=== PATIENT | female | born 1945 | race Caucasian/White ===

== ENCOUNTER 2022-05-19 12:56 | Outpatient (CLI) | payer MEDICARE, BC, SELFPAY ==
[2022-05-19 09:12] LABS: Albumin* 4.2 g/dL (3.3-5.0)
[2022-05-19 09:13] LABS: Chloride* 106 mmol/L (96-114); Potassium* 4.1 mmol/L (3.6-5.1); Sodium* 141 mmol/L (135-149)
[2022-05-19 09:15] LABS: Aspartate Amino Transferase* 28 U/L (12-35); Bilirubin Total* 0.7 mg/dL (0.1-1.5); Blood Urea Nitrogen* 21 mg/dL (7-30); Carbon Dioxide* 30 mmol/L (20-32); Cholesterol* 243 mg/dL (90-199); Creatinine* 0.7 mg/dL (0.5-1.5); Estimated Glomerular Filt Rate 90 ml/min; Total Protein* 6.5 g/dL (6.0-8.3)
[2022-05-19 09:16] LABS: Alanine Aminotransferase* 18 U/L (4-35); Alkaline Phosphatase* 48 U/L (40-150); Calcium* 9.4 mg/dL (8.4-10.6); Glucose* 92 mg/dL (60-115); HDL Cholesterol* 70 mg/dL (>=50); LDL Cholesterol Calculated 157 mg/dL (<100); Triglycerides* 80 mg/dL (40-149)
== END 2022-05-19 12:57 | disposition home or self-care (01) ==
PROVIDERS: PCP Family Medicine; Visit Provider Family Medicine
DX: E78.5 Hyperlipidemia, unspecified (principal); E03.9 Hypothyroidism, unspecified
CPT/HCPCS: 80053; 80061; 84443

== ENCOUNTER 2022-07-08 12:44 | Outpatient (CLI) | payer MEDICARE, BC, SELFPAY ==
--- NOTE | 2022-07-08 13:00 | CRLHL7_ITS ---
For Patients: As a result of the Century Cures Act, medical imaging exams and procedure reports are released immediately into your electronic medical record. You may view this report before your referring provider. If you have questions, please contact your health care provider. BILATERAL SCREENING MAMMOGRAM WITH COMPUTER-AIDED DETECTION AND TOMOSYNTHESIS TECHNIQUE: CC and MLO views were obtained. These mammographic images have been obtained using full-field digital technique. These mammographic images were interpreted with the benefit of computer-aided detection. Breast Tomosynthesis was used in this interpretation. COMPARISON FILM: 05/23/2021, 05/22/2020, 08/17/2018. FINDINGS: The breasts are heterogeneously dense, which may obscure small masses IMPRESSION: There is no radiographic evidence for malignancy. ASSESSMENT: BI-RADS Category 2: Benign RECOMMENDATION: Routine screening mammogram in 1 year. A lay language report of this examination will be provided to the patient. Tru Frederick M.D. Diagnostic/Nuclear Medicine Radiologist [email or web address] BRETT/Dictated by: Tru Frederick MD @ 07/09/2022 8:41:00 AM (Electronically Signed)
== END 2022-07-08 12:45 | disposition home or self-care (01) ==
LOC: MAMMO 12:48
PROVIDERS: PCP Family Medicine; Visit Provider Family Medicine
DX: Z12.31 Encounter for screening mammogram for malignant neoplasm of breast (principal); R92.2 Inconclusive mammogram
CPT/HCPCS: 77063; 77067

== ENCOUNTER 2022-11-19 13:59 | Outpatient (CLI) | payer MEDICARE, BC, SELFPAY | END 2022-11-19 14:00 | disposition home or self-care (01) | PROVIDERS: PCP Family Medicine; Visit Provider Family Medicine | DX: E03.9 Hypothyroidism, unspecified (principal); E78.5 Hyperlipidemia, unspecified; R10.9 Unspecified abdominal pain; R63.4 Abnormal weight loss | CPT/HCPCS: 80053; 84439; 84443; 87086; 87186 ==

== ENCOUNTER 2022-11-20 09:05 | Outpatient (CLI) | payer MEDICARE, BC, SELFPAY | END 2022-11-20 09:06 | disposition home or self-care (01) | LOC: NFLDREF 11-21 15:36 | PROVIDERS: PCP Family Medicine; Referring Provider Family Medicine; Visit Provider Family Medicine | DX: E03.9 Hypothyroidism, unspecified (principal) | CPT/HCPCS: 84439; 84443 ==

== ENCOUNTER 2022-12-04 09:00 | Outpatient (CLI) | payer MEDICARE, BC, SELFPAY | END 2022-12-04 09:01 | disposition home or self-care (01) | LOC: NFLDREF 12-05 14:52 | PROVIDERS: PCP Family Medicine; Referring Provider Family Medicine; Visit Provider Family Medicine | DX: E03.9 Hypothyroidism, unspecified (principal); E05.80 Other thyrotoxicosis without thyrotoxic crisis or storm; R63.4 Abnormal weight loss; R10.9 Unspecified abdominal pain; K59.00 Constipation, unspecified; R10.13 Epigastric pain; R10.84 Generalized abdominal pain; R19.4 Change in bowel habit | CPT/HCPCS: 84439; 84443 ==

== ENCOUNTER 2022-12-11 08:28 | Outpatient (CLI) | payer MEDICARE, BC, SELFPAY ==
--- NOTE | 2022-12-11 09:00 | CRLHL7_ITS ---
For Patients: As a result of the Century Cures Act, medical imaging exams and procedure reports are released immediately into your electronic medical record. You may view this report before your referring provider. If you have questions, please contact your health care provider. Indication: ABD PAIN. WT LOSS, CHANGE IN BOWEL HABITS, MORE CONSTIPATION Technique: Postcontrast CT abdomen and pelvis. 61 cc Isovue 370 intravenous contrast. Please note that all CT scans at this facility use dose modulation, iterative reconstruction, and/or weight-based dosing when appropriate to reduce radiation dose to as low as reasonably achievable. Comparison: None Findings: There is a chronic nodule within the left breast tissue measuring 1.1 cm which is unchanged compared to prior mammograms going back to 2018 and is considered a benign finding. There is no suspicious intrahepatic mass. Focal fat deposition within the liver adjacent to the falciform ligament is noted. There is a benign cyst within the inferior spleen measuring 1.5 cm. The adrenal glands are normal. A subcentimeter cyst within the lower pole of the left kidney is present. The pancreas is unremarkable. Atherosclerotic disease in the aorta noted. Bibasilar scarring/fibrosis. Normal gallbladder. No calcified gallstones or biliary obstruction. No adenopathy in the abdomen or pelvis. Incidental duodenal diverticulum is present. The bladder is normal. No pelvic soft tissue mass. No bowel obstruction or inflammatory change. Normal appendix. No diverticulitis. No abdominal wall hernia. Multilevel degenerative disc disease and facet degeneration with multiple levels of anterolisthesis/retrolisthesis. No compression fracture. Leftward curvature of the lumbar spine is present. Degenerative joint disease of both hips. Impression: No bowel obstruction or inflammatory change. Incidental cyst within the inferior spleen. Please note that all CT scans at this facility use dose modulation, iterative reconstruction, and/or weight-based dosing when appropriate to reduce radiation dose to as low as reasonably achievable. Dictated by Adria Bond MD @ 12/11/2022 12:21:50 PM (Electronically Signed)
== END 2022-12-11 08:29 | disposition home or self-care (01) ==
LOC: CT 08:29
PROVIDERS: PCP Family Medicine; Visit Provider Family Medicine
DX: R10.9 Unspecified abdominal pain (principal); R63.4 Abnormal weight loss
CPT/HCPCS: 74177; Q9967

== ENCOUNTER 2022-12-18 09:16 | Outpatient (CLI) | payer MEDICARE, BC, SELFPAY ==
--- NOTE | 2022-12-18 08:25 | W.ANESCHARGE ---
Anesthesia Charges Start Date/Time Anesthesia Start Date: 12/18/22 Anesthesia Start Time: 10:42 Stop Date/Time Anesthesia Stop Date: 12/18/22 Anesthesia Stop Time: 11:27 Summary Extremes of Age - Over 70 or under 1: MDA
--- NOTE | 2022-12-18 11:29 | W.ANESCHARGE ---
Anesthesia Charges Start Date/Time Anesthesia Start Date: 12/18/22 Anesthesia Start Time: 10:42 Stop Date/Time Anesthesia Stop Date: 12/18/22 Anesthesia Stop Time: 11:27
== END 2022-12-18 09:17 | disposition home or self-care (01) ==
LOC: OP CLINIC 09:19
PROVIDERS: PCP Family Medicine; Visit Provider Internal Medicine
DX: R10.84 Generalized abdominal pain (principal); K57.30 Diverticulosis of large intestine without perforation or abscess without bleeding
CPT/HCPCS: 43239; 45378; 813; 88305; 99100; J2704

== ENCOUNTER 2023-01-26 07:49 | Outpatient (CLI) | payer MEDICARE, BC, SELFPAY | END 2023-01-26 07:50 | disposition home or self-care (01) | LOC: NFLDREF 01-28 11:22 | PROVIDERS: PCP Family Medicine; Referring Provider Family Medicine; Visit Provider Family Medicine | DX: E03.9 Hypothyroidism, unspecified (principal); E05.80 Other thyrotoxicosis without thyrotoxic crisis or storm | CPT/HCPCS: 84439; 84443 ==

== ENCOUNTER 2023-04-04 13:40 | Emergency (ER) | payer MEDICARE, BC, SELFPAY ==
[2023-04-04 13:50] VITALS: BP 133/63; PULSE 72; RESP 16; TEMP 36.6; O2SAT 98; BMI 21.9
--- NOTE | 2023-04-04 13:59 | CRLHL7_ITS ---
For Patients: As a result of the Cures Act, medical imaging exams and procedure reports are released immediately into your electronic medical record. You may view this report before your referring provider. If you have questions, please contact your health care provider. INDICATION: Headaches. History of intracranial parenchymal hemorrhage. TECHNIQUE: Noncontrast axial CT of the head is submitted. Compared to prior MRI of the head from November 22, 2019. FINDINGS: Mild cerebral atrophy. There has been interval involution of prior noted left occipital lobe parenchymal hemorrhage with residual encephalomalacia and gliosis. The remainder of the ventricles, sulci and gyri are of normal size, shape and contour for age and degree of atrophy. Midline structures are centrally located. No convincing evidence of suspicious intra- or extra-axial fluid collections. Mild patchy regions of decreased attenuation within the periventricular and subcortical white matter of both cerebral hemispheres. IMPRESSION: 1. No radiographic evidence of acute intracranial abnormalities. 2. Mild cerebral atrophy. 3. Chronic encephalomalacia and gliosis of the left occipital lobe compatible with involution of prior parenchymal hemorrhage. 4. Mild supratentorial white matter changes that are non-specific, but statistically most likely related to chronic small vessel ischemic disease. Dictated by Kem Herrera MD @ 04/04/2023 3:03:14 PM Please note that all CT scans at this facility use dose modulation, iterative reconstruction, and/or weight-based dosing when appropriate to reduce radiation dose to as low as reasonably achievable. Dictated by: Kem Herrera MD @ 04/04/2023 15:03:28 (Electronically Signed)
--- NOTE | 2023-04-04 14:02 | ED_ITS ---
HPI - General Adult General Chief complaint: Neuro Symptoms/Altered Deficit Stated complaint: Sudden onset headache, confusion Time Seen by Provider: 04/04/23 13:49 History of Present Illness HPI narrative: This 78-year-old female comes in reporting a sudden onset of a headache with some subsequent confusion that occurred about half an hour prior to arrival. She states that she has had worse headaches in the past and now feels that she is doing better. Her confusion was observed by a friend of hers but this was rather short lived also. She did not have any neurologic deficits. She is able to walk and talk normally. She does have a history of a subarachnoid hemorrhage that occurred about 4 5 years ago. She is not on any anticoagulants. Related Data Home Medications Medication Instructions Recorded Confirmed metronidazole 0.75 % topical cream 0.75 applic topical .As Needed PRN 01/24/22 01/29/23 Previous Rx's Medication Instructions Recorded omeprazole 20 mg capsule,delayed 20 mg PO QDAY #60 caps 12/26/22 release levothyroxine 75 mcg capsule 75 mcg PO QDAY #90 caps 01/29/23 Allergies Allergy/AdvReac Type Severity Reaction Status Date / Time Atorvastatin Allergy Intermediate muscle Uncoded 01/29/23 11:10 aches Review of Systems Status of ROS: Reports: 10 or more systems reviewed and unremarkable except as noted in History and below Narrative: Constitutional: No fevers, no weight gain or loss. Eyes: No discharge. No vision changes. HENT: No congestion, no sore throat, no ear pain. Cardiovascular: No chest pain, no palpitations. Respiratory: No shortness of breath, no wheezes, no cough. Gastrointestinal: No abdominal pain, no vomiting, no diarrhea. Genitourinary: No dysuria, no hematuria. Musculoskeletal: Normal range of motion. Skin: No rashes, no pruritis. Neurological: No dizziness, weakness, sensory change, speech change. Endo/Heme/Allergies: No bruising or bleeding. No polydipsia. Pysch: no suicidality, no anxiety, no insomnia. All other systems reviewed and are negative. [facility] Medical History (Updated 04/04/23 @ 16:23 by Dalton Timmons MD) Iatrogenic hyperthyroidism ?E05.80 - Other thyrotoxicosis without thyrotoxic crisis or storm (ICD-10) Weight loss ?R63.4 - Abnormal weight loss (ICD-10) Constipation ?K59.00 - Constipation, unspecified (ICD-10) Rosacea (02/25/10) ?L71.9 - Rosacea, unspecified (ICD-10) Plantar fasciitis (02/25/10) ?M72.2 - Plantar fascial fibromatosis (ICD-10) Peripheral neuropathy ?G62.9 - Polyneuropathy, unspecified (ICD-10) Hypothyroidism (02/25/10) ?E03.9 - Hypothyroidism, unspecified (ICD-10) Hyperlipidemia ?E78.5 - Hyperlipidemia, unspecified (ICD-10) History of subarachnoid hemorrhage (11/22/19) ?Z86.79 - Personal history of other diseases of the circulatory system (ICD- 10) History of Goodpasture's syndrome (1965) ?Z87.448 - Personal history of other diseases of urinary system (ICD-10) History of adenomatous polyp of colon (2008) ?Z86.010 - Personal history of colonic polyps (ICD-10) Genital herpes simplex ?A60.00 - Herpesviral infection of urogenital system, unspecified (ICD-10) Chronic pain of right knee ?M25.561 - Pain in right knee (ICD-10) ?G89.29 - Other chronic pain (ICD-10) Cervical dysplasia (02/25/10) ?N87.9 - Dysplasia of cervix uteri, unspecified (ICD-10) Surgical History History of robot-assisted laparoscopic hysterectomy (2010) ?Z90.710 - Acquired absence of both cervix and uterus (ICD-10) Family History Coronary artery disease Mother Father Breast cancer Mother, Onset Age: 80 Maternal Grandmother Stroke Father Social History Narrative: 2 adult children 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 HEENT: Normocephalic, atraumatic. Neck: Normal range of motion. Nontender. Supple. Heart: Regular. No murmurs. Normal rate. Intact distal pulses. Lungs: Clear to auscultation. No chest discomfort. No wheezes, rhonchi, or rales. Abdomen: Normal bowel sounds. Nontender. No rebound tenderness. Genitalia: Deferred. Back: No midline tenderness. Normal range of motion. Extremities: Normal range of motion. No injury. Skin: Intact. No rash. Warm. No erythema or pallor. Neurologic: No altered sensation. No weakness. Alert and oriented. No facial asymmetry. Tongue is midline. [id number] is normal. No pronator drift. Air Intelligence Specialist strength is equal bilaterally. She is able to raise each leg to my hand. Psychiatric: No suicidality. No anxiety or depression. No insomnia. Nursing notes and vitals signs are reviewed. Const: Vital Signs, click to edit/add: Vital Signs - 24 hr 04/04/23 13:50 Temperature 97.9 F Pulse Rate [Pulse Oximeter] 72 Respiratory Rate 16 Blood Pressure [Ri ght Upper Arm] 133/63 Pulse Oximetry 98 Oxygen Delivery Me thod Room Air Course Vital Signs Vital signs: Initial Vital Signs Temperature 97.9 F 04/04/23 13:50 Temperature Source Temporal Artery Scan 04/04/23 13:50 Pulse Rate 72 04/04/23 13:50 Respiratory Rate 16 04/04/23 13:50 Blood Pressure 133/63 04/04/23 13:50 Blood Pressure Mean 86 04/04/23 13:50 Blood Pressure Position Supine 04/04/23 13:50 Pulse Oximetry 98 04/04/23 13:50 Oxygen Delivery Method Room Air 04/04/23 13:50 Vital Signs Temperature 97.9 F 04/04/23 13:50 Pulse Rate 72 04/04/23 13:50 Respiratory Rate 16 04/04/23 13:50 Blood Pressure 133/63 04/04/23 13:50 Pulse Oximetry 98 04/04/23 13:50 Oxygen Delivery Method Room Air 04/04/23 13:50 Temperature 97.9 F 04/04/23 13:50 Pulse Rate 72 04/04/23 13:50 Respiratory Rate 16 04/04/23 13:50 Blood Pressure 133/63 04/04/23 13:50 Pulse Oximetry 98 04/04/23 13:50 Oxygen Delivery Method Room Air 04/04/23 13:50 Medical Decision Making MDM Narrative Medical decision making narrative: This patient comes in reporting a sudden onset of feeling confusion or difficulty with memory of what is recently happening. She also reports a mild to moderate headache. She states that she has had headaches significantly worse than this in the past and also has a history of a subarachnoid hemorrhage about 4 5 years ago. Her neurologic exam and her conversation and higher order functions all are completely normal except she continues to try to remember what was happening in the events earlier today. I revisited her and she states that she does not remember going to the CT scanner in her visit here. Lab results also return with normal reassuring findings. This patient may be experiencing transient global amnesia. She is not showing any sign of neurologic deficit. She is here with a friend and lives at home with her . She is able to get up and ambulate and function normally so despite the difficulty remembering recent events she seems okay to return home with her friend and under the care an observation of her . I did advise her to return if worsening symptoms occur. Lab Data Labs: Lab Results 04/04/23 Range/Units 15:31 WBC 5.45 (4.50-11.00) K/uL RBC 3.91 L (4.00-5.20) m/uL Hgb 13.2 (12.0-16.0) gm/dL Hct 39.8 (33.0-51.0) % MCV 102 H (80-100) fL MCH 34 (26-34) pg MCHC 33 (32-36) gm/dL RDW Coeff of Robi 13.0 (11.5-15.5) % Plt Count 196 (140-440) K/uL Neut % (Auto) 71.1 (42.0-72.0) % Lymph % (Auto) 20.4 (20-44) % [place] % (Auto) 7.7 (0.0-11.0) % Eos % (Auto) 0.2 (0.0-7.0) % Baso % (Auto) 0.2 (0.0-3.0) % Neut # (Auto) 3.88 (1.7-7.0) K/uL Lymph # (Auto) 1.11 (0.90-2.90) K/uL [place] # (Auto) 0.40 (0.00-0.90) K/UL Eos # (Auto) 0.01 (0.00-0.50) K/uL Baso # (Auto) 0.01 (0.00-0.30) K/uL Abs Immat Gran (auto) 0.02 (0.00-0.30) K/uL Imm/Tot Granulo (auto) 0.4 % Sodium 139 (135-149) mmol/L Potassium 4.6 (3.6-5.1) mmol/L Chloride 103 (96-114) mmol/L Carbon Dioxide 30 (20-32) mmol/L Anion Gap 6 L (7-15) mEq/L BUN 13 (7-30) mg/dL Creatinine 0.7 (0.5-1.5) mg/dL Estimated Creat Clear 37.26 Estimated GFR 89 ml/min Glucose 99 (60-115) mg/dL Calcium 9.4 (8.4-10.6) mg/dL Imaging Data CT scan - head: Radiologist's impression: 1. No radiographic evidence of acute intracranial abnormalities. 2. Mild cerebral atrophy. 3. Chronic encephalomalacia and gliosis of the left occipital lobe compatible with involution of prior parenchymal hemorrhage. 4. Mild supratentorial white matter changes that are non-specific, but statistically most likely related to chronic small vessel ischemic disease. Discharge Plan Discharge Clinical Impression: TGA (transient global amnesia) Patient Disposition: Home w/ Parent or Adult Condition: Unchanged Additional Instructions: Continue current plans. Activity as tolerated. Follow up with MD or return if worsening symptoms occur. Prescriptions: No Action metronidazole 0.75 % cream 0.75 applic topical .As Needed PRN levothyroxine 75 mcg capsule 75 mcg PO QDAY Qty: 90 3RF omeprazole 20 mg capsule,delayed release(DR/EC) 20 mg PO QDAY Qty: 60 0RF Follow Up/Referrals: Lupe Haynes MD [Primary Care Provider] - Stand Alone Forms: [employer] Info Instructions
[2023-04-04 15:37] LABS: Basophils Absolute Auto 0.01 K/uL (0.00-0.30); Basophils Percent Auto 0.2 % (0.0-3.0); Eosinophils Absolute Auto 0.01 K/uL (0.00-0.50); Eosinophils Percent Auto 0.2 % (0.0-7.0); Hematocrit 39.8 % (33.0-51.0); Hemoglobin* 13.2 gm/dL (12.0-16.0); Immature Granulocytes Abs Auto 0.02 K/uL (0.00-0.30); Immature Granulocytes Pct Auto 0.4 %; Lymphocytes Absolute Auto 1.11 K/uL (0.90-2.90); Lymphocytes Percent Auto 20.4 % (20-44); Mean Corpuscular HGB Conc 33 gm/dL (32-36); Mean Corpuscular Hemoglobin 34 pg (26-34); Mean Corpuscular Volume 102 fL (80-100); Monocytes Percent Auto 7.7 % (0.0-11.0); Neutrophils Absolute Auto 3.88 K/uL (1.7-7.0); Neutrophils Percent Auto 71.1 % (42.0-72.0); Platelet Count* 196 K/uL (140-440); Red Blood Count 3.91 m/uL (4.00-5.20); White Blood Count* 5.45 K/uL (4.50-11.00)
[2023-04-04 15:47] LABS: Slide Review Reflex No
[2023-04-04 15:54] LABS: Chloride* 103 mmol/L (96-114); Potassium* 4.6 mmol/L (3.6-5.1); Sodium* 139 mmol/L (135-149)
[2023-04-04 15:57] LABS: Anion Gap 6 mEq/L (7-15); Blood Urea Nitrogen* 13 mg/dL (7-30); Carbon Dioxide* 30 mmol/L (20-32); Creatinine* 0.7 mg/dL (0.5-1.5); Est. Creatinine Clearance* 37.26; Estimated Glomerular Filt Rate 89 ml/min
[2023-04-04 15:58] LABS: Calcium* 9.4 mg/dL (8.4-10.6); Glucose* 99 mg/dL (60-115)
[2023-04-04 16:32] VITALS: BP 130/78; PULSE 75; RESP 18; O2SAT 99
--- NOTE | 2023-04-06 08:51 | ED.NURSE ---
Chart accessed as Bakari had called and wanted to know her dc instructions. Instructions given per phone.
== END 2023-04-04 16:33 | disposition home or self-care (01) ==
PROVIDERS: Emergency Provider Emergency Medicine Emergency Medical Services; PCP Family Medicine
DX: G45.4 Transient global amnesia (principal)
CPT/HCPCS: 36415; 70450; 80048; 85025; 99284

== ENCOUNTER 2023-04-08 15:30 | Outpatient (CLI) | payer MEDICARE, BC, SELFPAY | END 2023-04-08 15:31 | disposition home or self-care (01) | PROVIDERS: PCP Family Medicine; Visit Provider Family Medicine | DX: R71.8 Other abnormality of red blood cells (principal); E03.9 Hypothyroidism, unspecified | CPT/HCPCS: 82607; 84439; 84443 ==

== ENCOUNTER 2023-06-02 08:00 | Outpatient (CLI) | payer MEDICARE, BC, SELFPAY ==
--- OUTSIDE RECORDS SUMMARY | 2023-06-04 15:42 | XMS_ITS | Clinical Summary ---
Author Name Unknown Organization [facility] Address [place], [place] [address] Care Team Providers Care Scenery Builder Name Role Phone Lupe Haynes MD Primary Care Provider + Nader Fermin MD Unavailable [phone] Allergies Active Allergy Reactions Criticality Noted Date Comments Rofecoxib Other - Describe In Comment Field Low 09/21/2018 Lsjrdou-Uvl-Hfl Reductase Inhibitors Other - Describe In Comment Field 10/20/2018 Leg cramps Medications Medication Sig Dispensed Refills Start Date End Date Status b complex vitamins (VITAMIN B COMPLEX) capsule Take 1 capsule by mouth once daily. 0 Active metroNIDAZOLE 0.75 % cream Apply topically to affected area(s) 2 times daily if needed. 0 05/21/2018 Active calcium carbonate (CALTRATE) 600 mg calcium (1,500 mg) tablet Take 600 mg by mouth at bedtime. 0 Active Cholecalciferol, Vitamin D3, 2,000 unit tablet Take 2,000 Units by mouth once daily. 0 Active levothyroxine (SYNTHROID) 100 mcg tablet Take 100 mcg by mouth once daily. 3 08/16/2018 Active valacyclovir HCl (VALTREX ORAL) Take by mouth. Uses prn - hasn't used it lately 0 Active omeprazole (PRILOSEC) 20 mg Delayed-Release capsuleIndications:AV M (arteriovenous malformation) Take 1 capsule by mouth once daily before a meal. 28 capsule 0 02/21/2020 Active pregabalin (LYRICA) 50 mg capsule 0 11/07/2020 Active pregabalin (LYRICA) 75 mg capsule 0 11/16/2020 Active durable medical equipment (DME)Indications:Prim raymundo osteoarthritis of right knee,Chronic pain of right knee Procare Reddie Brace (wrap around hinged knee brace), Medium [id number] Length of Use: 99 months 0 12/17/2020 Active medication order composer Take by mouth. 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 Immunizations Name Administration Dates Next Due Hepatitis A (Adult) 05/14/2017 Influenza, High-dose Inactivated 05/24/2019,05/11,05/19/2016 Influenza, High-dose Quadriv alent Inactivated 02/27/2021,04/02/2020 Influenza, IIV4 05/21/2018,05/14/2017,05/19/2016 Influenza, Inactivated AIIV4 (Age 65+ Years) Preserv Free 01/22/2022 Pneumococcal Poly,23-Valent (Pneumovax) 08/12/19 12 Pneumococcal conj 13-Valent (Prevnar 13) 016 Td, Preservative Free (age >= 7 Years) 4,10/23/1997 Tdap 08/12/2011 Typhoid (injectable) 05/14/2017 Zoster (Shingrix-RZV, recombinant) 10/31/2019, Zoster (Zostavax-ZVL, live) 05/16/2015 Family History Medical History Relation Name Comments Stroke Father Cancer-breast Mother Coronary artery disease Other Relation Name Status Comments Father Mother Other Social History Tobacco Use Types Packs/Day Years Used Date Smoking Tobacco: Former Smokeless Tobacco: Never Tobacco Cessation:Counseling Given: Yes Comments:None for 50 years Alcohol Use Standard Drinks/Week Comments Yes 0 (1 standard drink = 0.6 oz pure alcohol) Has a little glass of wine once a day Social Connections Answer Date Recorded Frequency of Communication with Friends and Fami ly Not on file 05/11/2021 Financial Resource Strain Answer Date R ecorded Difficulty of Paying Living Expenses Not on file 05/11/2021 Difficulty of Paying Living Expenses Not on file 05/11/2021 Sex and Gender Information Value Date Recorded Sex Assigned at Not on file Gender Identity Female 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 reported TB 02-20-2022 Height 157.5 cm (5' 2) 02/20/2022 9:04 AM CDT Pt. reported TB 02-20-2022 Body Mass Index 25.97 02/20/2022 9:04 AM CDT Plan of Treatment Health Maintenance Due Date Last Done Comments Depression screening for age 12+ 1958 Hepatitis C screening for ag e 18-79 01/26/1964 DEXA/DXA scan for age 65+ 2011 Medicare Wellness for age 65+ 2011 Tetanus booster 08/11/2021 08/12/2011, 11/0 01/2004, 10/23/1997 COVID-19 vaccine series ( season) 2023 01/22/2022, 08/17/2021, 03/07/2021, Additional history exists Influenza for age 65+ 01/09/2023 01/22/2022 , 02/27/2021, 04/02/2020, Additional history exists BMI (ht and wt on same day) for age 18+ 02/20/2023 02/20/2022, 11/29/2018, 10/20/2018 Tdap Completed 08/12/2011 Pneumococcal series for age 65+ Completed 6, 08/12/2011 Zoster (shingles) series for age 50+ Completed 10/31/2019, 05/25/2019, 05/16/2015 Advance Directives Documents on File Type Date Recorded Patient Clinical Specialist Medical Device Expl anation Treatment Guidelines 08/13/2020 10:44 AM bl ood transfution info card Latest Code Status on File Code Status Date Activated Date Inactivated Comments Full Code 11/22/2019 8:41 PM 11/25/2019 1:34 PM Question Answer Comments Code Status Discussion: Not Discussed Care Teams Scenery Builder Relationship Specialty Start Date End Date Lupe Haynes MD [address] [place] [address] PCP - General Family Practice 10/20/18 Nader Fermin MD [facility] [place] [address] Consulting Physician Sports Medicine - Family Medicine 04/18/20
== END 2023-06-02 08:01 | disposition home or self-care (01) ==
LOC: NFLDREF 06-04 15:39
PROVIDERS: PCP Family Medicine; Referring Provider Family Medicine; Visit Provider Family Medicine
DX: E03.9 Hypothyroidism, unspecified (principal); E78.00 Pure hypercholesterolemia, unspecified; Z13.1 Encounter for screening for diabetes mellitus
CPT/HCPCS: 80061; 82947; 84439; 84443

== ENCOUNTER 2023-07-08 12:32 | Outpatient (CLI) | payer MEDICARE, BC, SELFPAY ==
--- NOTE | 2023-07-08 13:00 | MR_ITS ---
Patient: GUERRERO NEVES Facility:?[facility] Patient ID:?[id number] Site Patient ID:?[id number]. Site :?[id number] Study:?MRI-Head MRA W/O-07/08/2023 5:14:44 PM Ordering Physician:FERN GATES Final Report: INDICATION: Follow up intracranial hemorrhage. Evaluate for AVM. TECHNIQUE: Brain is scanned with sagittal T1 axial FLAIR T2 diffusion-weighted and volumetric T1 weighted sequences for after infusion of 20 cc of a around contrast. Dayo-hn-nxzlez magnetic resonance angiography of the intracranial [place] arteries. Swdk-vm-[id number] and gadolinium-enhanced MRA images of the carotid arteries and vertebral arteries. COMPARISON: Previous MRI and MRA dated 11/22/2019. FINDINGS: MRI brain: There is a focal zone of encephalomalacia and gliosis in the left occipital lobe with associated degraded blood products that corresponds to the site of previously noted intraparenchymal hemorrhage on the prior MRI scan. This has shown expected maturation and focal loss of volume. No evidence of recurrent hemorrhage. No mass effect. No sign of intracranial hemorrhage elsewhere in the brain. The ventricles and subarachnoid spaces are mildly prominent but stable. No evidence of acute ischemic infarction no areas of diffusion restriction. Multi focal and confluent foci of FLAIR/T2 hyperintensity within bilateral supratentorial white matter as noted before are nonspecific findings but consistent with chronic small vessel ischemic disease. Postcontrast images show a small enhancing vein along the rostral margin of the mature left occipital lobe hematoma bed (images 147 and 148 of coronal series 12). This may represent an asymmetric cortical vein or less likely a small developmental venous anomaly. No evidence of high flow vascular malformation. No enhancing lesions. Orbits, sella and skull base are unremarkable. MRA [place]: The distal internal carotid arteries and basilar artery are widely patent. The anterior middle and posterior cerebral arteries their proximal branches are unremarkable no evidence of high-flow AV malformation or aneurysm. MRA carotid arteries and vertebral arteries: Bilateral common carotid arteries internal and external carotid arteries are widely patent. Bilateral vertebral arteries are widely patent. There is no evidence of flow- limiting stenosis or dissection. IMPRESSION: 1. Interval expected maturation of the previously noted left occipital lobe intraparenchymal hemorrhage (comparing to prior MRI 11/22/2019). No evidence of recurrent intracranial hemorrhage. 2. Mild generalized volume loss. Mild to moderate chronic small vessel ischemic disease. 3. No MRA evidence of high-flow AV malformation or aneurysm. 4. Small enhancing vein near the left occipital lobe mature hematoma bed could represent a small incidental developmental venous anomaly or asymmetric cortical vein. 5. No evidence of flow-limiting stenosis or dissection of carotid arteries or vertebral arteries. Dictated by Tru Colunga MD @ 07/10/2023 7:39:30 AM Signed by:?Tru Colunga MD @07/10/2023 7:39:30 AM (Electronic Signature)
--- NOTE | 2023-07-08 13:19 | MR_ITS ---
Patient: GUERRERO NEVES Facility:?[facility] RIS Patient ID:?[id number] Site Patient ID:?[id number]. Site :?1945 Study:?MRI-Head W/ and W/O Cont 20 CC DOATERM-07/08/2023 5:13:12 PM Ordering Physician:FERN GATES Final Report: INDICATION: Follow up intracranial hemorrhage. Evaluate for AVM. TECHNIQUE: Brain is scanned with sagittal T1 axial FLAIR T2 diffusion-weighted and volumetric T1 weighted sequences for after infusion of 20 cc of a around contrast. Njpc-bl-vnxerz magnetic resonance angiography of the intracranial hopi Faye arteries. Oosz-yo-havavb and gadolinium-enhanced MRA images of the carotid arteries and vertebral arteries. COMPARISON: Previous MRI and MRA dated 11/22/2019. FINDINGS: MRI brain: There is a focal zone of encephalomalacia and gliosis in the left occipital lobe with associated degraded blood products that corresponds to the site of previously noted intraparenchymal hemorrhage on the prior MRI scan. This has shown expected maturation and focal loss of volume. No evidence of recurrent hemorrhage. No mass effect. No sign of intracranial hemorrhage elsewhere in the brain. The ventricles and subarachnoid spaces are mildly prominent but stable. No evidence of acute ischemic infarction no areas of diffusion restriction. Multi focal and confluent foci of FLAIR/T2 hyperintensity within bilateral supratentorial white matter as noted before are nonspecific findings but consistent with chronic small vessel ischemic disease. Postcontrast images show a small enhancing vein along the rostral margin of the mature left occipital lobe hematoma bed (images 147 and 148 of coronal series 12). This may represent an asymmetric cortical vein or less likely a small developmental venous anomaly. No evidence of high flow vascular malformation. No enhancing lesions. Orbits, sella and skull base are unremarkable. MRA [place] of Faye: The distal internal carotid arteries and basilar artery are widely patent. The anterior middle and posterior cerebral arteries their proximal branches are unremarkable no evidence of high-flow AV malformation or aneurysm. MRA carotid arteries and vertebral arteries: Bilateral common carotid arteries internal and external carotid arteries are widely patent. Bilateral vertebral arteries are widely patent. There is no evidence of flow- limiting stenosis or dissection. IMPRESSION: 1. Interval expected maturation of the previously noted left occipital lobe intraparenchymal hemorrhage (comparing to prior MRI 11/22/2019). No evidence of recurrent intracranial hemorrhage. 2. Mild generalized volume loss. Mild to moderate chronic small vessel ischemic disease. 3. No MRA evidence of high-flow AV malformation or aneurysm. 4. Small enhancing vein near the left occipital lobe mature hematoma bed could represent a small incidental developmental venous anomaly or asymmetric cortical vein. 5. No evidence of flow-limiting stenosis or dissection of carotid arteries or vertebral arteries. Dictated by Tru Colunga MD @ 07/10/2023 7:38:49 AM Signed by:?Tru Colunga MD @07/10/2023 7:38:49 AM (Electronic Signature)
--- NOTE | 2023-07-08 13:45 | MR_ITS ---
Patient: GUERRERO NEVES Facility:?[facility] RIS Patient ID:?[id number] Site Patient ID:?[id number]. Site :?1945 Study:?MRI-Neck Angio W/ and W/O Cont 20 CC DOATERM-07/08/2023 5:15:56 PM Ordering Physician:?FERN SCHNEIDER Final Report: INDICATION: Follow up intracranial hemorrhage. Evaluate for AVM. TECHNIQUE: Brain is scanned with sagittal T1 axial FLAIR T2 diffusion-weighted and volumetric T1 weighted sequences for after infusion of 20 cc of a around contrast. Dcab-fa-igayfo magnetic resonance angiography of the intracranial sac and [place]aye arteries. Lfkh-oz-ldehpz and gadolinium-enhanced MRA images of the carotid arteries and vertebral arteries. COMPARISON: Previous MRI and MRA dated 11/22/2019. FINDINGS: MRI brain: There is a focal zone of encephalomalacia and gliosis in the left occipital lobe with associated degraded blood products that corresponds to the site of previously noted intraparenchymal hemorrhage on the prior MRI scan. This has shown expected maturation and focal loss of volume. No evidence of recurrent hemorrhage. No mass effect. No sign of intracranial hemorrhage elsewhere in the brain. The ventricles and subarachnoid spaces are mildly prominent but stable. No evidence of acute ischemic infarction no areas of diffusion restriction. Multi focal and confluent foci of FLAIR/T2 hyperintensity within bilateral supratentorial white matter as noted before are nonspecific findings but consistent with chronic small vessel ischemic disease. Postcontrast images show a small enhancing vein along the rostral margin of the mature left occipital lobe hematoma bed (images 147 and 148 of coronal series 12). This may represent an asymmetric cortical vein or less likely a small developmental venous anomaly. No evidence of high flow vascular malformation. No enhancing lesions. Orbits, sella and skull base are unremarkable. MRA [place] of Faye: The distal internal carotid arteries and basilar artery are widely patent. The anterior middle and posterior cerebral arteries their proximal branches are unremarkable no evidence of high-flow AV malformation or aneurysm. MRA carotid arteries and vertebral arteries: Bilateral common carotid arteries internal and external carotid arteries are widely patent. Bilateral vertebral arteries are widely patent. There is no evidence of flow- limiting stenosis or dissection. IMPRESSION: 1. Interval expected maturation of the previously noted left occipital lobe intraparenchymal hemorrhage (comparing to prior MRI 11/22/2019). No evidence of recurrent intracranial hemorrhage. 2. Mild generalized volume loss. Mild to moderate chronic small vessel ischemic disease. 3. No MRA evidence of high-flow AV malformation or aneurysm. 4. Small enhancing vein near the left occipital lobe mature hematoma bed could represent a small incidental developmental venous anomaly or asymmetric cortical vein. 5. No evidence of flow-limiting stenosis or dissection of carotid arteries or vertebral arteries. Dictated by Tru Colunga MD @ 07/10/2023 7:40:04 AM Signed by:?Tru Colunga MD @07/10/2023 7:40:04 AM (Electronic Signature)
== END 2023-07-08 12:33 | disposition home or self-care (01) ==
LOC: MRI 12:33
PROVIDERS: PCP Family Medicine; Visit Provider Psychiatry & Neurology Neurology
DX: I62.9 Nontraumatic intracranial hemorrhage, unspecified (principal); I67.82 Cerebral ischemia; Q28.2 Arteriovenous malformation of cerebral vessels; R90.89 Other abnormal findings on diagnostic imaging of central nervous system
CPT/HCPCS: 70544; 70549; 70553; A9575

== ENCOUNTER 2023-07-09 12:34 | Outpatient (CLI) | payer MEDICARE, BC, SELFPAY ==
--- NOTE | 2023-07-09 13:00 | XR_ITS ---
Patient: GUERRERO NEVES Facility:?[facility] Patient ID:?[id number] Site Patient ID:?[id number]. Site :?1945 Study:?DEXA-Bone Density SPINE/BOTH HIPS-07/09/2023 1:11:26 PM Ordering Physician:JARVIS Final Report: DXA BONE MINERAL DENSITY STUDY Reason for exam: Postmenopausal. Current height (in): 62. Weight (lb): 115. Menopause age: 51. Ethnicity: White. 1. Have you had a previous hip or vertebral fracture? No. 2. Have you had any fractures during your adult life which did not result from significant trauma (e.g., auto accident)? No. 3. Did either of your parents have a hip fracture? No. 4. Do you smoke? No. 5. Have you ever taken Glucocorticoids? No. 6. Do you have rheumatoid arthritis? No. 7. Do you have secondary osteoporosis? No. 8. Do you drink 3 or more alcoholic drinks per day? No. 9. Are you being treated for osteoporosis? No. 10. Have you ever taken any of the following medications: Actonel, Evista, Fosamax, Miacalcin, Reclast, Boniva, Forteo, HRT (i.e., estrogen/hormone therapy), Protelos, Prolia, Vitamin D, Calcium, other ? please specify. ANSWER: Yes, vitamin D, calcium, and pregabalin. 11. Do you have any of the following medical conditions: Anorexia or bulimia, asthma or emphysema, end stage renal disease, hyperparathyroidism, any seizure disorders, cancer, inflammatory bowel diseases, hysterectomy, other ? please specify. ANSWER: No. 12. What was your maximum height (inches)? 62. 13. Do you perform weight bearing exercise regularly? No. 14. Do you regularly consume dairy products? Yes. 15. Do you drink caffeinated beverages? Yes. If female: 16. At what age did your period start? 14. 17. Are you premenopausal? No. 18. How many full-term pregnancies have you had? 2. 19. Have you ever missed your period for more than 6 months in a row (not including or menopause)? No. TECHNIQUE: Bone mineral density study was performed using the CommScope. FINDINGS: The results of the study expressed as bone mineral density (BMD) are as follows: Lumbar spine L1 to L4: BMD: 1.208 g/cm2. T-score: 1.5. Z-score: 4.0 Neck Left: BMD: 0.724 g/cm2. T-score: -1.1. Z-score: 1.1 Right: BMD: 0.749 g/cm2. T-score: -0.9. Z-score: 1.3 Total Left: BMD: 0.852 g/cm2. T-score: -0.7. Z-score: 1.2 Right: BMD: 0.827 g/cm2. T-score: -0.9. Z-score: 1.0 IMPRESSION: Osteopenia. *Comparison exams done prior to 10/2019 were performed on different unit, [employer]. COMPARISON: Compared with scan of 05/24/2018, the bone mineral density has decreased by 6.8 percent at the spine and decreased by 6.1 percent at the hip. Compared with scan of 08/22/2013, the bone mineral density has increased by 2.2 percent at the spine and decreased by 6.6 percent at the hip. FRAX 10-year Fracture Risk Major Osteoporotic Fracture: 9.8% Hip Fracture: 1.9% Reported Risk Factors: [place] () Neck BMD0.724, BMI=21.0 Adria Bond M.D. Diagnostic Radiologist [email or web address] MARRY/margarito D& Transcribed: 4:55 p.mAbel pimentel/Dictated by: Adria Bond MD @ 07/10/2023 9:17:00 AM Signed by:?Adria Bond MD @07/11/2023 10:14:57 AM (Electronic Signature)
== END 2023-07-09 12:35 | disposition home or self-care (01) ==
LOC: RAD 12:35
PROVIDERS: PCP Family Medicine; Visit Provider Family Medicine
DX: Z78.0 Asymptomatic menopausal state (principal); M85.88 Other specified disorders of bone density and structure, other site
CPT/HCPCS: 77080

== ENCOUNTER 2023-07-16 08:48 | Outpatient (CLI) | payer MEDICARE, BC, SELFPAY | END 2023-07-16 08:49 | disposition home or self-care (01) | LOC: NFLDREF 07-29 09:30 | PROVIDERS: PCP Family Medicine; Referring Provider Family Medicine; Visit Provider Family Medicine | DX: Z13.21 Encounter for screening for nutritional disorder (principal) | CPT/HCPCS: 82306 ==

== ENCOUNTER 2023-09-01 07:59 | Outpatient (CLI) | payer MEDICARE, BC, SELFPAY ==
--- OUTSIDE RECORDS SUMMARY | 2023-09-02 10:28 | XMS_ITS | Clinical Summary ---
Author Name Unknown Organization [facility] Address [place], [place] [address] Care Team Providers Care Emergency Service Restorer Name Role Phone Lupe Haynes MD Primary Care Provider + Nader Fermin MD Unavailable [phone] Allergies Active Allergy Reactions Criticality Noted Date Comments Rofecoxib Other - Describe In Comment Field Low 09/21/2018 Vwmcrlp-Pqw-Ivy Reductase Inhibitors Other - Describe In Comment Field 10/20/2018 Leg cramps Medications Medication Sig Dispensed Refills Start Date End Date Status b complex vitamins (VITAMIN B COMPLEX) capsule Take 1 capsule by mouth once daily. Active metroNIDAZOLE 0.75 % cream Apply topically to affected area(s) 2 times daily if needed. 05/21/2018 Active calcium carbonate (CALTRATE) 600 mg calcium (1,500 mg) tablet Take 600 mg by mouth at bedtime. Active Cholecalciferol, Vitamin D3, 2,000 unit tablet Take 2,000 Units by mouth once daily. Active levothyroxine (SYNTHROID) 100 mcg tablet Take 100 mcg by mouth once daily. 3 08/16/2018 Active valacyclovir HCl (VALTREX ORAL) Take by mouth. Uses prn - hasn't used it lately Active omeprazole (PRILOSEC) 20 mg Delayed-Release capsuleIndications:AV M (arteriovenous malformation) Take 1 capsule by mouth once daily before a meal. 28 capsule 02/21/2020 Active pregabalin (LYRICA) 50 mg capsule 11/07/2020 Active pregabalin (LYRICA) 75 mg capsule 11/16/2020 Active durable medical equipment (DME)Indications:Prim raymundo osteoarthritis of right knee,Chronic pain of right knee Procare Reddie Brace (wrap around hinged knee brace), Medium [id number] Length of Use: 99 months 0 12/17/2020 Active medication order composer Take by mouth. 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 ASSISTANT Sexual Orientation Not on file Obstetrics History [...] age 65+ 2011 Tetanus booster 08/11/2021 08/12/2011, 1101/2004, 10/23/1997 COVID-19 vaccine series ( season) 2023 01/22/2022, 08/17/2021, 03/07/2021, Additional history exists BMI (ht and wt on same day) for age 18+ 02/20/2023 02/20/2022, 11/29/2018, 10/20/2018 Influenza for age 65+ 01/10/2024 01/22/2022 , 02/27/2021, 04/02/2020, Additional history exists Tdap Completed 08/12/2011 Pneumococcal series for age 65+ Completed 6, 08/12/2011 Zoster (shingles) series for age 50+ Completed 10/31/2019, 05/25/2019, 05/16/2015 Procedures Procedure Name Priority Date/Time Associated Diagnosis Comments LAB TRACKING EVENT Routine 06/04/2023 10 :40 AM FLOOR COVERING PRINTER ASSISTANT PLATE GLASS POLISHER THIN PREP PAP SCREEN IMAGED Routine 06/04/2023 10:40 AM FLOOR COVERING PRINTER ASSISTANT HPV THIN PREP Routine 06/04/2023 10:40 AM FLOOR COVERING PRINTER ASSISTANT from Last 3 Months Results * LAB TRACKING EVENT (06/04/2023 10:40 AM FLOOR COVERING PRINTER ASSISTANT) Other (Other) Client Collect / Unknown 06/04/2023 10:40 AM FLOOR COVERING PRINTER ASSISTANT 06/04/2023 3:59 PM FLOOR COVERING PRINTER ASSISTANT Lupe Haynes MD LAB BILL ONLY [facility] [address] [place] [id number], * PLATE GLASS POLISHER THIN PREP PAP SCREEN IMAGED (06/04/2023 10:40 AM FLOOR COVERING PRINTER ASSISTANT) Case Report Gynecologic Cytology Report ? Case: [id number] ? Authorizing Provider: ??Lupe Haynes MD ??Collected: ? 06/04/2023 1040 ? Ordering Location: ? [facility] ?Received: ?06/04/2023 1659 ? First Screen: ?Betzaida Donato ? Specimen: ?PLATE GLASS POLISHER ThinPrep Vial Screening, Vaginal ? 06/11/2023 10:46 AM [facility] INTERPRETATION/ RESULT NEGATIVE FOR INTRAEPITHELIAL LESION OR MALIGNANCY (NIL) (none) 06/11/2023 10:46 AM [facility] IMEN ADEQUACY Satisfactory for evaluation Endocervical cells cannot be evaluated due to severe atrophy 06/11/2023 10:46 AM [facility] HPV REQUEST HPV and PAP 06/11/2023 10:46 AM [facility] Last Pap Date 05/22/2022 06/11/2023 10:46 AM [facility] Last Pap Result NIL 10:46 AM [facility] Abnormal Pap or Fishtail Bx in last 5 years No 06/11/2023 10:46 AM [facility] Menstrual Status Postmenopausal 06/11/2023 10:46 AM [facility] Additional Information 06/11/2023 10:46 AM [facility] Comment: Interpreted at [facility] Central Laboratory - [address], [place] [address] Automated Review Successful 06/11/2023 10:46 AM [facility] Comment:Specimen processed s uccessfully by automated medical equipment technician device, ThinPrep Imaging System, [employer] ANCILLARY TESTING PLATE GLASS POLISHER HPV Ordered, Please see separate report 06/11/2023 10:46 AM [facility] Note The pap test is a screening technique, not a diagnostic procedure. It is used primarily to screen for squamous cancers and precursor lesions. Published studies have shown that it is subject to both false negative and false positive results. The pap test should not be used as the sole means to diagnose or exclude pre-malignant and malignant lesions. 06/11/2023 10:46 AM FLOOR COVERING PRINTER ASSISTANT [facility] Other VAGINAL SWAB / Unknown 06/04/2023 10:40 AM FLOOR COVERING PRINTER ASSISTANT 06/04/2023 4:59 PM FLOOR COVERING PRINTER ASSISTANT Lupe Haynes MD PATHOLOGY/CYTOLO GY Performing Organization Address [facility] Co de Phone Number [facility] [address] [place] [address], * HPV HIGH RISK (06/04/2023 10:40 AM FLOOR COVERING PRINTER ASSISTANT) TYPE 16 Negative Negative 06/08/2023 11:04 AM FLOOR COVERING PRINTER ASSISTANT [facility] TYPE 18 Negative Negative 06/08/2023 11:04 AM FLOOR COVERING PRINTER ASSISTANT [facility] OTHER HIGH RISK TYPES Negative Negative 06/08/2023 11:04 AM FLOOR COVERING PRINTER ASSISTANT [facility] Other VAGINAL SWAB / Unknown 06/04/2023 10:40 AM FLOOR COVERING PRINTER ASSISTANT 06/04/2023 4:59 PM FLOOR COVERING PRINTER ASSISTANT Narrative [facility] - 06/08/2023 11:04 AM FLOOR COVERING PRINTER ASSISTANT HPV types 16, 18, 31, 33, 35, 39, 45, 51, 52, 56, 58, 59, 66 and 68 DNA were undetectable or below the pre-set threshold. Methodology: Lesia Heydi 4800 HPV Test Lupe Haynes MD MICROBIOLOGY Performing Organization Address [facility] Co de Phone Number [facility] [address] [place] [address], from Last 3 Months Advance Directives Documents on File Type Date Recorded Patient Legislative Analyst Expl anation Treatment Guidelines 08/13/2020 10:44 AM bl ood transfution info card * Full Code (Latest Code Status on File) Date Activated Date Inactivated Comments 11/22/2019 8:41 PM 11/25/2019 1:34 PM Question Answer Comments Code Status Discussion: Not Discussed Care Teams Emergency Service Restorer Relationship Specialty Start Date End Date Lpue Haynes MD [address] [place] [address] PCP - General Family Practice 10/20/18 Nader Fermin MD [facility] [place] [address] Consulting Physician Sports Medicine - Family Medicine 04/18/20
== END 2023-09-01 08:00 | disposition home or self-care (01) ==
LOC: NFLDREF 09-02 10:26
PROVIDERS: PCP Family Medicine; Referring Provider Family Medicine; Visit Provider Family Medicine
DX: E03.9 Hypothyroidism, unspecified (principal)
CPT/HCPCS: 84439; 84443

== ENCOUNTER 2023-09-24 09:56 | Outpatient (CLI) | payer MEDICARE, BC, SELFPAY ==
--- OUTSIDE RECORDS SUMMARY | 2023-09-24 09:58 | XMS_ITS | Clinical Summary ---
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 BUSINESS 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 Sexual Orientation Not on file Obstetrics History [...] Documents on File Type Date Recorded Patient Rehab Assistant Expl anation Treatment Guidelines 08/13/2020 10:44 AM bl ood transfution info card * Full Code (Latest Code Status on File) Date Activated Date Inactivated Comments 11/22/2019 8:41 PM 11/25/2019 1:34 PM Question Answer Comments Code Status Discussion: Not Discussed Care Teams Department Mgr Relationship Specialty Start Date End Date Lupe Haynes MD [address] [place] [address] PCP - General Family Practice 10/20/18 Nader Ferm[place] [address] Consulting Physician Sports Medicine - Family Medicine 04/18/20
--- NOTE | 2023-09-24 10:15 | MM_ITS ---
Patient: GUERRERO NEVES Facility:?[facility] Patient ID:?[id number] Site Patient ID:?[id number] Site :?1945 Study:?XRay-Breast Bilateral 3D W/CAD-09/24/2023 10:26:03 AM Ordering Physician:Cookie Final Report: BILATERAL SCREENING MAMMOGRAM WITH COMPUTER-AIDED DETECTION AND TOMOSYNTHESIS TECHNIQUE: CC and MLO views were obtained. These mammographic images have been obtained using full-field digital technique. These mammographic images were interpreted with the benefit of computer-aided detection. Breast Tomosynthesis was used in this interpretation. COMPARISON FILM: 07/08/22, 05/23/21, 05/22/20. FINDINGS: There are scattered areas of fibroglandular density. IMPRESSION: There is no radiographic evidence for malignancy. ASSESSMENT: BI-RADS Category 2: Benign RECOMMENDATION: Routine screening mammogram in 1 year. A lay language report of this examination will be provided to the patient. Adria Bond M.D. Diagnostic Radiologist [email or web address] MARRY/sp R& Transcribed: 1:55 p.m. SP/Dictated by: Adria Bond MD @ 09/24/2023 11:08:00 AM Signed by:?Adria Bond MD @09/24/2023 3:10:53 PM (Electronic Signature)
== END 2023-09-24 09:57 | disposition home or self-care (01) ==
LOC: MAMMO 09:57
PROVIDERS: PCP Family Medicine; Visit Provider Family Medicine
DX: Z12.31 Encounter for screening mammogram for malignant neoplasm of breast (principal)
CPT/HCPCS: 77063; 77067

== ENCOUNTER 2024-03-23 10:59 | Emergency (ER) | payer MEDICARE, BC, SELFPAY ==
[2024-03-23] VITALS (17 sets, daily range): BP systolic 107–133; BP diastolic 48–76; PULSE 60–65; RESP 16; TEMP 36.8; O2SAT 95–100; BMI 20.2
--- NOTE | 2024-03-23 11:31 | ED_ITS ---
HPI - General Adult General Date Seen: 03/23/24 Chief complaint: Neuro Symptoms/Altered Deficit Stated complaint: Not feeling right, can't remember things. Time Seen by Provider: 03/23/24 11:28 Source: patient, family, RN notes reviewed and old records reviewed Mode of arrival: ambulatory Limitations: no limitations History of Present Illness HPI narrative: Patient is a 71-year-old here with her for evaluation of confusion this morning. She got up at around 9 which is a little later than usual for her. Her said she just was out of it, did not seem to know where she was and could not remember the cats names. She notes that she also feels just slightly off balance. She has a little bit of a headache on the top of her head. 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 Does not have any nausea, no vomiting. She says she has been working on remembering the cat's names and can now come up with 2 of them. She tells me that in general her memory is not entirely reliable, she would not usually be able to remember the year for example. But her says this morning she was different than usual. She denies any specific other neurologic symptoms such as difficulty with speech or strength. Her has not noted anything like that either. She denies any recent trauma, illness, vomiting or diarrhea. She has no pain other than the headache. She does not smoke or drink. She was able to tell me her medical history including using the terms subarachnoid hemorrhage and peripheral neuropathy, and told me her medications were pregabalin and levothyroxine. 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 Denies seizure history. Related Data Home Medications ?Medication ?Instructions ?Recorded ?Confirmed calcium 200 mg (carbonate, tab PO 09/03/23 09/03/23 citrate)-magnesium 50 mg (as oxide) tablet levothyroxine 75 mcg tablet 75 mcg PO DAILY 03/23/24 03/23/24 pregabalin 50 mg capsule 50 mg PO BID 03/23/24 03/23/24 Allergies Allergy/AdvReac Type Severity Reaction Status Date / Time Atorvastatin Allergy Intermediate muscle Uncoded 09/03/23 08:23 aches Review of Systems Status of ROS: Reports: 10 or more systems reviewed and unremarkable except as noted in History and below [facility] Medical History (Updated 03/23/24 @ 13:11 by Ynes Fritz MD) Elevated MCV ?R71.8 - Other abnormality of red blood cells (ICD-10) Iatrogenic hyperthyroidism ?E05.80 - Other thyrotoxicosis without thyrotoxic crisis or storm (ICD-10) Weight loss ?R63.4 - Abnormal weight loss (ICD-10) Constipation ?K59.00 - Constipation, unspecified (ICD-10) Rosacea (02/25/10) ?L71.9 - Rosacea, unspecified (ICD-10) Plantar fasciitis (02/25/10) ?M72.2 - Plantar fascial fibromatosis (ICD-10) Peripheral neuropathy ?G62.9 - Polyneuropathy, unspecified (ICD-10) Hypothyroidism (02/25/10) ?E03.9 - Hypothyroidism, unspecified (ICD-10) Hyperlipidemia ?E78.5 - Hyperlipidemia, unspecified (ICD-10) History of subarachnoid hemorrhage (11/22/19) ?Z86.79 - Personal history of other diseases of the circulatory system (ICD- 10) History of Goodpasture's syndrome (1965) ?Z87.448 - Personal history of other diseases of urinary system (ICD-10) History of adenomatous polyp of colon (2008) ?Z86.010 - Personal history of colonic polyps (ICD-10) Genital herpes simplex ?A60.00 - Herpesviral infection of urogenital system, unspecified (ICD-10) Chronic pain of right knee ?M25.561 - Pain in right knee (ICD-10) ?G89.29 - Other chronic pain (ICD-10) Cervical dysplasia (02/25/10) ?N87.9 - Dysplasia of cervix uteri, unspecified (ICD-10) Surgical History History of robot-assisted laparoscopic hysterectomy (2010) ?Z90.710 - Acquired absence of both cervix and uterus (ICD-10) Family History (Updated 04/08/23 @ 15:28 by Lupe Haynes MD) Mother Breast cancer, Onset Age: 80 Coronary artery disease Maternal Grandmother Breast cancer Father Stroke, Onset Age: 80 Coronary artery disease Social History (Updated 06/04/23 @ 11:14 by Aida Marinelli ~ CT[facility]) Narrative: 2 adult children 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, 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, walking Non-smoker Social drinker 6/ week What is your current living situation?: I presently have a place to live Problems where you live: no known problems In the past 12 months, utilities in danger of being shut off: no In the past 12 mos, have been you worried that your food would run out before you had money to buy more?: never true In the past 12 mos, the food you bought just didn't last and you didn't have money to buy more?: never true Smoking Status: Never smoker Do you use any of these nicotine containing products: None Second hand tobacco smoke exposure: No How often do you have a drink containing alcohol: never AUDIT-C Alcohol total score: 0 Non-prescribed substance use: denies use How often does anyone, including family, friends and others, physically hurt you : never How often does anyone, including family, friends and others, insult or talk down to you: never How often does anyone, including family, friends and others, threaten you with harm: never How often does anyone, including family, friends and others, scream or curse at you: never Exam Narrative: Exam Narrative: Vital signs reviewed In general, alert, nontoxic elderly woman. She is ambulatory without assistance. Head: Normocephalic, atraumatic. Eyes: Sclera clear. Pupils equal and reactive. ENT: Mucous membranes moist. Tongue is midline. Neck: Supple without adenopathy. Heart: Regular rate and rhythm without murmur. Lungs: Clear. No increased work of breathing, crackles or wheezes. Abdomen: Soft, nontender to palpation. Extremities: Well perfused, pulses intact. No significant edema. Neurologic: Alert, conversant. Speech fluent, no dysarthria. At rest, she appears to have a slight droop of the left side of her face, but with active movement, she has normal facial movement bilaterally. She has 5 of 5 strength in bilateral upper and lower extremities, she has intact cerebellar function by finger-nose testing. Gait is stable. In terms of memory, she is now able to tell me too the cat's names, and she remembers a 3rd cat's name who is now . She is unable to remember the other living CT names. She says that she cheated in looked at the year this morning, so she knows it is 2023, she does recall that from earlier today. As noted in the HPI, she is able to rattle off her medical history and medications accurately. Skin: Warm, dry well perfused. Affect: Normal. Const: Vital Signs, click to edit/add: Vital Signs - 24 hr 03/23/24 11:06 03/23/24 11:35 03/23/24 11:36 Temperature 98.2 F Pulse Rate 62 61 Pulse Rate [Pulse Oximeter] 65 Respiratory Rate 16 Blood Pressure 117/51 L Blood Pressure [Ri ght Upper Arm] 107/76 Pulse Oximetry 97 96 95 Oxygen Delivery Me thod Room Air 03/23/24 11:45 03/23/24 11:46 03/23/24 11:47 Temperature Pulse Rate 62 62 62 Pulse Rate [Pulse Oximeter] Respiratory Rate 16 Blood Pressure 124/62 Blood Pressure [Ri ght Upper Arm] Pulse Oximetry 98 96 95 Oxygen Delivery Me thod 03/23/24 12:00 03/23/24 12:01 03/23/24 12:41 Temperature Pulse Rate 64 62 65 Pulse Rate [Pulse Oximeter] Respiratory Rate Blood Pressure 133/60 Blood Pressure [Ri ght Upper Arm] Pulse Oximetry 95 95 96 Oxygen Delivery Me thod 03/23/24 12:45 03/23/24 12:47 03/23/24 12:48 Temperature Pulse Rate 61 62 63 Pulse Rate [Pulse Oximeter] Respiratory Rate Blood Pressure 122/56 L Blood Pressure [Ri ght Upper Arm] Pulse Oximetry 100 96 95 Oxygen Delivery Me thod 03/23/24 13:00 03/23/24 13:01 03/23/24 13:02 Temperature Pulse Rate 60 60 63 Pulse Rate [Pulse Oximeter] Respiratory Rate 16 Blood Pressure 125/57 L Blood Pressure [Ri ght Upper Arm] Pulse Oximetry 97 97 97 Oxygen Delivery Me thod 03/23/24 13:15 03/23/24 13:17 Temperature Pulse Rate 63 62 Pulse Rate [Pulse Oximeter] Respiratory Rate 16 Blood Pressure 121/48 L Blood Pressure [Ri ght Upper Arm] Pulse Oximetry 97 97 Oxygen Delivery Me thod Course Course ED Course: On arrival is stroke code was called. I assessed her and then she went over for CT of the head without contrast. My overall feel after talking with her is that likelihood of this being an ischemic event is low. I did talk with Neurology as well, they agree. In discussion with them, we have decided to likely pursue an MRI just to make sure there is nothing subtle there, but she does not have any focal neurologic deficits, she is having some mild memory problems this morning, but seems to be able to form new memories, and is able to recall fairly sophisticated medical terminology. Will check some labs, look for metabolic derangement, signs of infection etcetera. Labs are reassuring. White blood cell count is slightly depressed at 3.7, hemoglobin is 13.5 normal diff. Metabolic panel is normal, blood sugar is 96. LFTs normal, TSH normal. Point of care troponin 0.01. MRI of the brain read by Radiology as negative for acute findings. It sounds as if her confusion was most acute right after getting up this morning and is largely resolved although she still having to work to come up with some memories, she says that she has been reminded of the cat's name several times but is having trouble on going recalling nose. I wonder if this is a version of mild transient global amnesia which is largely cleared. I do not find any evidence of infection, metabolic derangement, or acute intracranial process such as hemorrhage or stroke. I think it is reasonable to let her go home. Would recommend primary care follow- up in the coming week or 2 for reassessment and return for any significant worsening of symptoms. Vital Signs Vital signs: Initial Vital Signs Temperature 98.2 F 03/23/24 11:06 Temperature Source Temporal Artery Scan 03/23/24 11:06 Pulse Rate 65 03/23/24 11:06 Respiratory Rate 16 03/23/24 11:06 Blood Pressure 107/76 03/23/24 11:06 Blood Pressure Mean 86 03/23/24 11:06 Blood Pressure Position Sitting 03/23/24 11:06 Pulse Oximetry 97 03/23/24 11:06 Oxygen Delivery Method Room Air 03/23/24 11:06 Vital Signs Temperature 98.2 F 03/23/24 11:06 Pulse Rate 65 03/23/24 11:06 Respiratory Rate 16 03/23/24 11:06 Blood Pressure 107/76 03/23/24 11:06 Pulse Oximetry 97 03/23/24 11:06 Oxygen Delivery Method Room Air 03/23/24 11:06 Temperature 98.2 F 03/23/24 11:06 Pulse Rate 62 03/23/24 13:17 Respiratory Rate 16 03/23/24 13:17 Blood Pressure 121/48 L 03/23/24 13:17 Pulse Oximetry 97 03/23/24 13:17 Oxygen Delivery Method Room Air 03/23/24 11:06 Medical Decision Making Lab Data Labs: Lab Results 03/23/24 03/23/24 Range/Units 11:30 11:40 WBC 3.69 L (4.50-11.00) K/uL RBC 4.08 (4.00-5.20) m/uL Hgb 13.5 (12.0-16.0) gm/dL Hct 40.9 (33.0-51.0) % MCV 100 (80-100) fL MCH 33 (26-34) pg MCHC 33 (32-36) gm/dL RDW Coeff of Robi 13.0 (11.5-15.5) % Plt Count 182 (140-440) K/uL Neut % (Auto) 69.1 (42.0-72.0) % Lymph % (Auto) 20.3 (20-44) % [place] % (Auto) 9.5 (0.0-11.0) % Eos % (Auto) 0.5 (0.0-7.0) % Baso % (Auto) 0.3 (0.0-3.0) % Neut # (Auto) 2.50 (1.7-7.0) K/uL Lymph # (Auto) 0.70 L (0.90-2.90) K/uL [place] # (Auto) 0.40 (0.00-0.90) K/UL Eos # (Auto) 0.00 (0.00-0.50) K/uL Baso # (Auto) 0.00 (0.00-0.30) K/uL Abs Immat Gran (auto) 0.00 (0.00-0.30) K/uL Imm/Tot Granulo (auto) 0.3 % Sodium 137 (135-149) mmol/L Potassium 3.8 (3.6-5.1) mmol/L Chloride 102 (96-114) mmol/L Carbon Dioxide 31 (20-32) mmol/L Anion Gap 4 L (7-15) mEq/L BUN 14 (7-30) mg/dL Creatinine 0.6 (0.5-1.5) mg/dL Estimated Creat Clear 37.85 Estimated GFR 92 ml/min Glucose 96 (60-115) mg/dL Calcium 9.5 (8.4-10.6) mg/dL Total Bilirubin 0.7 (0.1-1.5) mg/dL Direct Bilirubin 0.3 (0.0-0.5) mg/dL AST 29 (12-35) U/L ALT 17 (4-35) U/L Alkaline Phosphatase 53 (40-150) U/L Total Protein 7.0 (6.0-8.3) g/dL Albumin 4.3 (3.3-5.0) g/dL TSH 1.070 (0.270-4.200) uIU/mL POC Troponin I 0.01 (0.01-0.04) ng/ml Imaging Data CT scan - head: Attestation: I have reviewed the pertinent imaging results. Radiologist's impression: Patient: Guerrero Neves MR#: [id number] : 1945 Acct:[id number] Loc: ED Service Date: 03/23/[address]: Ordering Physician: Ynes Fritz M.D. Date of Service: 03/23/24 Procedure(s): CT head/brain wo con Accession Number(s): [id number] cc: Ynes Fritz M.D.; Lupe Haynes M.D.~ For Patients: As a result of the Century Cures Act, medical imaging exams and procedure reports are released immediately into your electronic medical record. You may view this report before your referring provider. If you have questions, please contact your health care provider. INDICATION: Unable to remember things COMPARISON: 04/04/2023 TECHNIQUE: CT of the brain / head without intravenous contrast. Multiplanar axial, coronal, and sagittal reformats were reconstructed. FINDINGS: No intracranial hemorrhage. Age-related parenchymal volume loss. No acute or subacute cortically based infarct. Unchanged encephalomalacia in the left occipital lobe related to a prior infarct. Scattered white matter hypodensities may be related to chronic microvascular ischemia. No mass or mass effect. Normal ventricles. No skull fractures. No worrisome focal bone lesion. IMPRESSION: No acute intracranial findings. Please note that all CT scans at this facility use dose modulation, iterative reconstruction, and/or weight-based dosing when appropriate to reduce radiation dose to as low as reasonably achievable. Dictated by Becky Daniels MD @ 03/23/2024 11:47:58 AM MRI - head: Attestation: I have reviewed the pertinent imaging results. Radiologist's impression: Patient: GUERRERO NEVES Facility: [facility] Site . Site : 1945 Study: MRI-Head WO-03/23/2024 12:46:05 PM Ordering Physician: Catrina Quick Final Report: Indication: Confusion. Technique: Multiplanar, multisequence MRI of the brain was performed without intravenous contrast. Comparison: CT head 03/23/2024. Findings: The corpus callosum, pituitary gland and clivus appear intact. Mild degenerative change visualized upper cervical spine. There is no restricted diffusion. The ventricles are proportionate to the cerebral sulci. The 4th ventricle appears midline. The basal cisterns appear patent. No abnormal extra-axial fluid collection identified. There is no intracranial mass, abnormal mass-effect or midline shift identified. Mild parenchymal volume loss. Qptm-ag-[id number] scattered T2 FLAIR hyperintense foci within the subcortical and periventricular white matter, favored to represent chronic ischemic microvascular disease. Encephalomalacia and gliosis involving the left paramedian occipital lobe, compatible with prior infarct. There is hemosiderin deposition along the infarct bed. Small chronic focus of microhemorrhage within the left posterior temporal lobe. Major intracranial vascular flow voids appear grossly intact. Both globes are preserved. Impression: 1. No acute/subacute infarct. 2. 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 3. Moderate chronic ischemic microvascular disease. Discharge Plan Discharge Clinical Impression: Confusion Instructions: Acute Delirium (ED) Additional Instructions: Your testing today is all reassuring. Your MRI does not show evidence of stroke and there is no evidence of bleeding. I would recommend that you follow-up with Dr. Haynes in the next week or 2 for recheck. Return any time for significantly worsening symptoms, severe pain, vomiting, fevers, etcetera. Prescriptions: No Action calcium carb and citrat-mag ox 200 mg calcium- 50 mg tablet PO levothyroxine 75 mcg tablet 75 mcg PO DAILY pregabalin 50 mg capsule 50 mg PO BID Follow Up/Referrals: Lupe Haynes MD [Primary Care Provider] - Stand Alone Forms: [employer] Info Instructions
--- NOTE | 2024-03-23 11:55 | CRLHL7_ITS ---
For Patients: As a result of the Century Cures Act, medical imaging exams and procedure reports are released immediately into your electronic medical record. You may view this report before your referring provider. If you have questions, please contact your health care provider. Indication: Confusion. Technique: Multiplanar, multisequence MRI of the brain was performed without intravenous contrast. Comparison: CT head 03/23/2024. Findings: The corpus callosum, pituitary gland and clivus appear intact. Mild degenerative change visualized upper cervical spine. There is no restricted diffusion. The ventricles are proportionate to the cerebral sulci. The 4th ventricle appears midline. The basal cisterns appear patent. No abnormal extra-axial fluid collection identified. There is no intracranial mass, abnormal mass-effect or midline shift identified. Mild parenchymal volume loss. Hade-ef-mindogmh scattered T2 FLAIR hyperintense foci within the subcortical and periventricular white matter, favored to represent chronic ischemic microvascular disease. Encephalomalacia and gliosis involving the left paramedian occipital lobe, compatible with prior infarct. There is hemosiderin deposition along the infarct bed. Small chronic focus of microhemorrhage within the left posterior temporal lobe. Major intracranial vascular flow voids appear grossly intact. Both globes are preserved. Impression: 1. No acute/subacute infarct. 2. 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 3. Moderate chronic ischemic microvascular disease. Dictated by Harman Stephens MD @ 03/23/2024 1:01:32 PM (Electronically Signed)
[2024-03-23 12:01] LABS: Troponin, Point-of-Care* 0.01 ng/ml (0.01-0.04)
[2024-03-23 12:06] LABS: Albumin* 4.3 g/dL (3.3-5.0); Chloride* 102 mmol/L (96-114)
[2024-03-23 12:07] LABS: Potassium* 3.8 mmol/L (3.6-5.1); Sodium* 137 mmol/L (135-149)
[2024-03-23 12:09] LABS: Anion Gap 4 mEq/L (7-15); Aspartate Amino Transferase* 29 U/L (12-35); Bilirubin Direct* 0.3 mg/dL (0.0-0.5); Bilirubin Total* 0.7 mg/dL (0.1-1.5); Blood Urea Nitrogen* 14 mg/dL (7-30); Carbon Dioxide* 31 mmol/L (20-32); Creatinine* 0.6 mg/dL (0.5-1.5); Est. Creatinine Clearance* 37.85; Estimated Glomerular Filt Rate 92 ml/min
[2024-03-23 12:10] LABS: Alanine Aminotransferase* 17 U/L (4-35); Alkaline Phosphatase* 53 U/L (40-150); Calcium* 9.5 mg/dL (8.4-10.6); Glucose* 96 mg/dL (60-115)
--- OUTSIDE RECORDS SUMMARY | 2024-03-23 12:47 | XMS_ITS | Clinical Summary ---
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 Sexual Orientation Not on file Obstetrics History [...] 2011 Medicare Wellness for age 65+ 2011 RSV vaccine for adults or (1 - 1-dose 75+ series) 2021 Tetanus booster 08/11/2021 08/12/2011, 1101/2004, 10/23/1997 BMI (ht and wt on same day) for age 18+ 02/20/2023 02/20/2022, 11/29/2018, 10/20/2018 COVID-19 vaccine series ( season) 2024 01/22/2022, 08/17/2021, 03/07/2021, Additional history exists Influenza for age 65+ 01/10/2024 01/22/2022 , 02/27/2021, 04/02/2020, Additional history exists Tdap Completed 08/12/2011 Pneumococcal series for age 65+ Completed 6, 08/12/2011 Zoster (shingles) series for age 50+ Completed 10/31/2019, 05/25/2019, 05/16/2015 Advance Directives Documents on File 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 Date 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
[2024-03-23 13:15] LABS: Basophils Percent Auto 0.3 % (0.0-3.0); Eosinophils Percent Auto 0.5 % (0.0-7.0); Hematocrit 40.9 % (33.0-51.0); Hemoglobin* 13.5 gm/dL (12.0-16.0); Immature Granulocytes Pct Auto 0.3 %; Lymphocytes Percent Auto 20.3 % (20-44); Mean Corpuscular HGB Conc 33 gm/dL (32-36); Mean Corpuscular Hemoglobin 33 pg (26-34); Mean Corpuscular Volume 100 fL (80-100); Monocytes Percent Auto 9.5 % (0.0-11.0); Neutrophils Percent Auto 69.1 % (42.0-72.0); Platelet Count* 182 K/uL (140-440); Red Blood Count 4.08 m/uL (4.00-5.20); White Blood Count* 3.69 K/uL (4.50-11.00)
[2024-03-23 13:16] LABS: Slide Review Reflex No
== END 2024-03-23 13:32 | disposition home or self-care (01) ==
PROVIDERS: Emergency Provider Emergency Medicine; PCP Family Medicine
DX: R41.0 Disorientation, unspecified (principal)
CPT/HCPCS: 36415; 70450; 70551; 80048; 80076; 84443; 84484; 85025; 93005; 99284; 99291

== ENCOUNTER 2024-04-19 08:47 | Emergency (ER) | payer MEDICARE, BC, SELFPAY ==
--- NOTE | 2024-04-19 08:50 | ED_ITS ---
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 Apparently had radiation in 2020. She also has a history of peripheral neuropathy, cervical cancer, genital herpes, osteoarthritis, hyperlipidemia, chronic back pain, hypothyroidism, rosacea, Goodpasture syndrome . she had an episode of transient global amnesia that occurred in 2022. Was seen in the ER on 03/23 for an episode of confusion. She cannot remember the names of her cats. She felt off balance. She had a bit of a headache. In the ER she had a code stroke although neurology and ER doctor felt that true probability of ischemic event was low. Workup in the ER included a brain MRI that was normal. She had labs showing a white count of 3.7, hemoglobin 13.5, platelet count 182. Differential on the white count showed 69% neutrophils 20% lymphocytes, 9% monocytes. BMP was normal. Sodium 137, potassium 3.8, chloride 102, bicarb 31, BUN 14, creatinine 0.6, glucose 96. LFTs were normal. Total bilirubin 0.7, AST 29, ALT 17, alk-phos 53, albumin 4.3. TSH was normal at 1.07. Troponin was normal. CT head 03/23/2024 No acute intracranial hemorrhage. MRI brain 03/23/2024 Impression: 1. No acute/subacute infarct. 2. 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 3. Moderate chronic ischemic microvascular disease. She presents to the ER today with concern for dysphagia. She is not exactly sure when the symptoms started and she does endorse that she has some poor memory. Probably some day last week she started having trouble swallowing and she felt her thyroid pill getting stuck in her throat. She gestures at roughly the level of her glottis. Ever since then she has been able to swallow and has no trouble swallowing liquid. A little bit of discomfort swallowing Jimenez food like bread but she is able to get it down. She is not having any esophageal destruction. She has a persistent irritation in her throat/esophagus. Since the symptoms are not getting better she came to the ER this morning. She does not have any fever. No pharyngeal pain. No sore mouth. No other neck pain. No swelling in her neck. No recent weight loss. She has never been diagnosed with stomach acid problems before or esophagitis. She does not take PPIs. She never takes NSAIDs or aspirin. She is not anticoagulated. Related Data Home Medications ?Medication ?Instructions ?Recorded ?Confirmed calcium 200 mg (carbonate, tab PO 09/03/23 03/24/24 citrate)-magnesium 50 mg (as oxide) tablet levothyroxine 75 mcg tablet 75 mcg PO DAILY 03/23/24 03/24/24 pregabalin 50 mg capsule 50 mg PO BID 03/23/24 03/24/24 Prevagen PO 03/24/24 Previous Rx's ?Medication ?Instructions ?Recorded omeprazole magnesium 10 mg oral 40 mg PO DAILY #30 ea 04/19/24 suspension,delayed release (Prilosec) sucralfate 100 mg/mL oral 10 ml PO BID PRN #300 mL 04/19/24 suspension (Carafate) Allergies Allergy/AdvReac Type Severity Reaction Status Date / Time Atorvastatin Allergy Intermediate muscle Uncoded 03/24/24 14:30 aches PFSH [facility] Medical History (Updated 04/19/24 @ 09:34 by Darryn Bermudez MD) Elevated MCV ?R71.8 - Other abnormality of red blood cells (ICD-10) Iatrogenic hyperthyroidism ?E05.80 - Other thyrotoxicosis without thyrotoxic crisis or storm (ICD-10) Weight loss ?R63.4 - Abnormal weight loss (ICD-10) Constipation ?K59.00 - Constipation, unspecified (ICD-10) Rosacea (02/25/10) ?L71.9 - Rosacea, unspecified (ICD-10) Plantar fasciitis (02/25/10) ?M72.2 - Plantar fascial fibromatosis (ICD-10) Peripheral neuropathy ?G62.9 - Polyneuropathy, unspecified (ICD-10) Hypothyroidism (02/25/10) ?E03.9 - Hypothyroidism, unspecified (ICD-10) Hyperlipidemia ?E78.5 - Hyperlipidemia, unspecified (ICD-10) History of subarachnoid hemorrhage (11/22/19) ?Z86.79 - Personal history of other diseases of the circulatory system (ICD- 10) History of Goodpasture's syndrome (1966) ?Z87.448 - Personal history of other diseases of urinary system (ICD-10) History of adenomatous polyp of colon (2008) ?Z86.010 - Personal history of colonic polyps (ICD-10) Genital herpes simplex ?A60.00 - Herpesviral infection of urogenital system, unspecified (ICD-10) Chronic pain of right knee ?M25.561 - Pain in right knee (ICD-10) ?G89.29 - Other chronic pain (ICD-10) Cervical dysplasia (02/25/10) ?N87.9 - Dysplasia of cervix uteri, unspecified (ICD-10) Surgical History History of robot-assisted laparoscopic hysterectomy (2010) ?Z90.710 - Acquired absence of both cervix and uterus (ICD-10) Family History (Updated 04/08/23 @ 15:28 by Lupe Haynes MD) Mother Breast cancer, Onset Age: 80 Coronary artery disease Maternal Grandmother Breast cancer Father Stroke, Onset Age: 80 Coronary artery disease Social History (Updated 06/04/23 @ 11:14 by Aida Marinelli ~ [facility]) Narrative: 2 adult children 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, aquazize, walking Non-smoker Social drinker 6/ week What is your current living situation?: I presently have a place to live Problems where you live: no known problems In the past 12 months, utilities in danger of being shut off: no In the past 12 mos, have been you worried that your food would run out before you had money to buy more?: never true In the past 12 mos, the food you bought just didn't last and you didn't have money to buy more?: never true Smoking Status: Never smoker Do you use any of these nicotine containing products: None Second hand tobacco smoke exposure: No How often do you have a drink containing alcohol: never AUDIT-C Alcohol total score: 0 Non-prescribed substance use: denies use How often does anyone, including family, friends and others, physically hurt you : never How often does anyone, including family, friends and others, insult or talk down to you: never How often does anyone, including family, friends and others, threaten you with harm: never How often does anyone, including family, friends and others, scream or curse at you: never Exam Narrative: Exam Narrative: Constitutional: Appears well-developed and well-nourished. Alert. Conversant and very pleasant. At time she has a very detailed historians but other times she struggles with memory loss. She says she relies on her to help her remember a lot of the details but she did not bring him with her today. Non toxic. HENT: Head: Atraumatic. Nose: Nose normal. Mouth/Throat: Oral mucosa is clear and moist. no trismus. Pharynx normal. Tonsils symmetric. No tonsillar enlargement, erythema, or exudate. Uvula midline. Phonation normal. Tongue normal. Submandibular tissues normal. No trismus. Eyes: Conjunctivae normal. EOM normal. Pupils equal, round, and reactive to light. No scleral icterus. Neck: Normal range of motion. Neck supple. No tracheal deviation present. No thyromegaly. No neck masses. No anterior or posterior or submental or supraclavicular adenopathy. No tenderness to tracheal compression. Cardiovascular: Normal rate, regular rhythm. No gallop. No friction rub. No murmur heard. Symmetric radial artery pulses Pulmonary/Chest: Effort normal. No stridor. No respiratory distress. No wheezes. No rales. No rhonchi . No tenderness. Abdominal: Soft. Bowel sounds normal. No distension. No mass. Very mild subtle epigastric tenderness. No rebound. No guarding. Musculoskeletal: RUE: Normal range of motion. No tenderness. No deformity LUE: Normal range of motion. No tenderness. No deformity RLE: Normal range of motion. No edema. No tenderness. No deformity LLE: Normal range of motion. No edema. No tenderness. No deformity Lymph: No cervical adenopathy. Neurological: Alert and oriented to person, place, and time. Normal strength. CN II-VII intact. No sensory deficit. GCS eye subscore is 4. GCS verbal subscore is 5. GCS motor subscore is 6. Normal coordination no facial droop. Tongue protrudes in the midline. Palate elevates symmetrically. No focal deficits. Skin: Skin is warm and dry. No rash noted. No pallor. Normal capillary refill. Psychiatric: Normal mood. Normal affect. Const: Vital Signs, click to edit/add: Vital Signs - 24 hr 04/19/24 08:53 Temperature 97.9 F Pulse Rate [Pulse Oximeter] 79 Respiratory Rate 16 Blood Pressure [Ri ght Upper Arm] 105/61 Pulse Oximetry 98 Oxygen Delivery Me thod Room Air Course Vital Signs Vital signs: Initial Vital Signs Temperature 97.9 F 04/19/24 08:53 Temperature Source Temporal Artery Scan 04/19/24 08:53 Pulse Rate 79 04/19/24 08:53 Respiratory Rate 16 04/19/24 08:53 Blood Pressure 105/61 04/19/24 08:53 Blood Pressure Mean 75 04/19/24 08:53 Blood Pressure Position Sitting 04/19/24 08:53 Pulse Oximetry 98 04/19/24 08:53 Oxygen Delivery Method Room Air 04/19/24 08:53 Vital Signs Temperature 97.9 F 04/19/24 08:53 Pulse Rate 79 04/19/24 08:53 Respiratory Rate 16 04/19/24 08:53 Blood Pressure 105/61 04/19/24 08:53 Pulse Oximetry 98 04/19/24 08:53 Oxygen Delivery Method Room Air 04/19/24 08:53 Temperature 97.9 F 04/19/24 08:53 Pulse Rate 79 04/19/24 08:53 Respiratory Rate 16 04/19/24 08:53 Blood Pressure 105/61 04/19/24 08:53 Pulse Oximetry 98 04/19/24 08:53 Oxygen Delivery Method Room Air 04/19/24 08:53 Medical Decision Making MDM Narrative Medical decision making narrative: Pleasant 79-year-old female presenting to the ER today predominantly for symptoms of odynophagia with some irritation in her throat (roughly at the level of the glottis and at the top of the esophagus) that began last week. It sounds like she had trouble where she had 1 of her pills get stuck in her esophagus. Suspect this probably represents symptoms of esophagitis or possibly an esophageal stricture. She has never had previous peptic ulcer disease or esophagitis that she knows of and does not regularly take NSAIDs or aspirin or any other typical gastric irritants. She has no history of malignancy or known lymphadenopathy in her neck. Although she has some pain with swallowing she is able to swallow applesauce and turkey sandwich here in the ER without any difficulty. There is no sign of any esophageal obstruction. She does not have her with her today to give her a ride home. Therefore not a candidate for EGD today. We were able to get her scheduled for an EGD in 2 days, on . Between now and then will start her on Prilosec. Prescription for liquid Carafate that she can use as well for esophageal irritation. At this point clinical exam does not show any evidence for an infectious etiology. I do not see any evidence for pharyngitis, tonsillitis, peritonsillar abscess, uvulitis. No evidence for any submandibular swelling, odontogenic infection, Jorge L's angina. She does not have any neck swelling, fever, or hot potato voice to suggest a retropharyngeal abscess or other deep space neck infection. Clinical exam shows a patent airway. No stridor. No difficulty breathing. Normal oxygen sat. At this point I do not think this represents epiglottitis, airway foreign body, or tracheal stenosis. She is not having any other focal deficits to suggest a stroke affecting her cranial nerves. No other weakness to suggest neuromuscular weakness. Patient is comfortable with the plan to start on acid medications today, follow- up in 2 days for EGD, and she will follow-up with her PCP in clinic within 1 week for recheck after the EGD. Discussed precautions for the patient to return to the ER she does have any worsening trouble swallowing, or any other new symptoms. Discharge Plan Discharge Clinical Impression: Dysphagia Patient Disposition: Home, Self-Care Condition: Stable Instructions: Dysphagia (ED) Additional Instructions: Your EGD (camera to evaluate the swallowing problem) is scheduled on 04/21 with a 12:15pm arrival time. Please enter through the [facility] Emergency Department and take a left to the [facility]. Please do not eat breakfast or any solid foods after midnight. You can have clear liquids up until 6:00 a.m. he will need a adult hazmat tanker driver to give you a safe ride home after your procedure afternoon.. Please follow the instructions that were provided to you in the pamphlet. If you have any questions, please call [phone]. Until , please monitor your symptoms carefully and if you have trouble with food or pills getting stuck and lodged in your throat, return to the ER immediately. To start treating the potential problem we will give him prescriptions for medicine that helps soothe your esophagus and medication to reduce stomach acid. Please follow-up with your regular doctor, Dr. Zuniga, within 5-7 days for recheck. Please call her clinic today to schedule a follow-up appointment. Prescriptions: New Prilosec 10 mg susp,delayed release for recon 40 mg PO DAILY Qty: 30 3RF sucralfate [Carafate] 100 mg/mL suspension 10 ml PO BID PRNQty: 300 0RF No Action calcium carb and citrat-mag ox 200 mg calcium- 50 mg tablet PO Prevagen PO levothyroxine 75 mcg tablet 75 mcg PO DAILY pregabalin 50 mg capsule 50 mg PO BID Follow Up/Referrals: Lupe Haynes MD [Primary Care Provider] - Stand Alone Forms: Onfan Info Instructions
[2024-04-19 08:53] VITALS: BP 105/61; PULSE 79; RESP 16; TEMP 36.6; O2SAT 98; BMI 20.3
--- OUTSIDE RECORDS SUMMARY | 2024-04-19 09:36 | XMS_ITS | Clinical Summary ---
Author Organization [employer] [facility] Address [place], [place] [address] Care Team Providers Care Thermodynamics Teacher Name Role Phone Lupe Haynes MD Primary Care Provider + Nader Fermin MD Unavailable Allergies Active Allergy Reactions Criticality Noted Date Comments Rofecoxib Other - Describe In Comment Field Low 09/21/2018 Tlkbksn-Xkk-Kkn Reductase Inhibitors Other - Describe In Comment Field 10/20/2018 Leg cramps Medications b complex vitamins (VITAMIN B COMPLEX) capsule Take 1 capsule by mouth once daily. Active metroNIDAZOLE 0.75 % cream Apply topically to affected area(s) 2 times daily if needed. 9 Active calcium carbonate (CALTRATE) 600 mg calcium (1,500 mg) tablet Take 600 mg by mouth at bedtime. Active Cholecalciferol, Vitamin D3, 2,000 unit tablet Take 2,000 Units by mouth once daily. Active levothyroxine (SYNTHROID) 100 mcg tablet Take 100 mcg by mouth once daily. 3 9 Active valacyclovir HCl (VALTREX ORAL) Take by mouth. Uses prn - hasn't used it lately Active omeprazole (PRILOSEC) 20 mg Delayed-Release capsuleIndications :AVM (arteriovenous malformation) Take 1 capsule by mouth once daily before a meal. 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 Gender Identity Female 04/17/2020 10:51 AM ROBOTIC MACHINE TENDER PRODUCTION Sexual Orientation Not on file Obstetrics History Last Filed Vital Signs Vital Sign Reading Time Taken Comments Blood Pressure 126/56 02/17/2022 1:30 PM CDT Pulse 54 02/17/2022 1:30 PM CDT Temperature 36.4 C (97.6 F) 02/17/2022 8:49 AM CDT Respiratory Rate 16 02/17/2022 1:30 [...] 75+ series) 2021 Tetanus booster 08/11/2021 08/12/2011, 01/2004, 10/23/1997 BMI (ht and wt on same day) for age 18+ 02/20/2023 02/20/2022, 11/29/2018, 10/20/2018 COVID-19 vaccine series ( season) 2024 01/22/2022, 08/17/2021, 03/07/2021, Additional history exists Influenza for age 65+ 01/10/2024 01/22/2022 , 02/27/2021, 04/02/2020, Additional history exists Tdap Completed 08/12/2011 Pneumococcal series for age 65+ Completed 6, 08/12/2011 Zoster (shingles) series for age 50+ Completed 10/31/2019, 05/25/2019, 05/16/2015 Insurance [place] ONLY [place] BL[place] HB ONLY MEDICARE PART A HB ONLY MEDICARE PART B HB ONLY MEDICARE PB ONLY [facility] Advance Directives Documents on File Type Date Recorded 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
--- OUTSIDE RECORDS SUMMARY | 2024-04-19 11:24 | XMS_ITS | Clinical Summary ---
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 Gender Identity Female 04/17/2020 10:51 AM DIRECTOR MISSION Sexual Orientation Not on file Obstetrics History [...] Completed 10/31/2019, 05/25/2019, 05/16/2015 Insurance [place] [place] BLUE MR PB ONLY [place] [place] HB ONLY MEDICARE PART A HB ONLY MEDICARE PART B HB ONLY MEDICARE PB ONLY [facility] Advance Directives Documents on File Type Date Recorded 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
== END 2024-04-19 09:55 | disposition home or self-care (01) ==
LOC: ED 11:22
PROVIDERS: Emergency Provider Emergency Medicine; PCP Family Medicine
DX: R13.10 Dysphagia, unspecified (principal)
CPT/HCPCS: 99282; 99283

== ENCOUNTER 2024-05-26 08:32 | Outpatient (CLI) | payer MEDICARE, BC, SELFPAY | END 2024-05-26 08:33 | disposition home or self-care (01) | LOC: NFLDREF 05-30 03:32 | PROVIDERS: PCP Family Medicine; Referring Provider Family Medicine; Visit Provider Family Medicine | DX: R63.4 Abnormal weight loss (principal); E78.5 Hyperlipidemia, unspecified; E03.9 Hypothyroidism, unspecified; M85.80 Other specified disorders of bone density and structure, unspecified site; M81.0 Age-related osteoporosis without current pathological fracture | CPT/HCPCS: 80053; 80061; 82306; 84443 ==

== ENCOUNTER 2024-06-21 11:16 | Outpatient (CLI) | payer MEDICARE, BC, SELFPAY ==
[2024-06-23 17:59] LABS: HPV Source Vaginal; HPV, High Risk by TMA Not Detected
== END 2024-06-21 11:17 | disposition home or self-care (01) ==
PROVIDERS: PCP Family Medicine; Visit Provider Family Medicine
DX: Z12.4 Encounter for screening for malignant neoplasm of cervix (principal); R87.811 Vaginal high risk human papillomavirus (HPV) DNA test positive; Z85.41 Personal history of malignant neoplasm of cervix uteri
CPT/HCPCS: 87624; 87625; 88141; 88142